=== PATIENT | male | born 1975 | race Caucasian/White ===

== ENCOUNTER 2021-02-20 09:36 | Emergency (ER) | payer BC ==
[~2021-02-20] VITALS: Ht 172.7 cm; Wt 97.5 kg
[2021-02-20] MEDS ORDERED: OXYMETAZOLINE NASAL 0.05% 15 ML SPRAY NS ONE ×2 (09:57→10:00)
[2021-02-20] MEDS ORDERED: SILVER NITRATE APPLICATOR STICK EACH TP ONE ×2 (10:00→10:14)
--- NOTE | 2021-02-20 10:20 | NUR ---
Preston redmond in ED - 02/20/21 at 1041 by MICHAEL emptied 1700 ml urine this shift.
--- NOTE | 2021-02-20 10:39 | NUR ---
Gave pt d/c instructions, pt verbalized understanding.
== END 2021-02-20 10:45 | disposition home or self-care (01) ==
LOC: ER 09:36
DX: R04.0 Epistaxis (principal)
CPT/HCPCS: 30901; A4663

== ENCOUNTER 2024-09-21 19:25 | Emergency (ER) | payer BC ==
[~2024-09-21] VITALS: Ht 175.3 cm; Wt 108.9 kg
[2024-09-21 23:49] VITALS: BP 130/88; O2SAT 99
== END 2024-09-22 00:25 | disposition home or self-care (01) ==
LOC: ER 19:25
DX: M25.561 Pain in right knee (principal); M79.631 Pain in right forearm; R07.0 Pain in throat; W18.39XA Other fall on same level, initial encounter; Y93.89 Activity, other specified; Y92.89 Other specified places as the place of occurrence of the external cause; Y99.8 Other external cause status
CPT/HCPCS: 73090; A4606; A4663